=== PATIENT | female | born 1975 | race Caucasian/White ===

== ENCOUNTER 2025-02-11 06:11 | Day surgery (SDC) | payer OTHER, SELFPAY | END 2025-02-11 09:35 | disposition home or self-care (01) | LOC: GI 06:11 | PROVIDERS: ATTENDING PHYSICIAN Internal Medicine; FAMILY PHYSICIAN Physician Assistant Medical | DX: Z12.11 Encounter for screening for malignant neoplasm of colon (principal); K57.30 Diverticulosis of large intestine without perforation or abscess without bleeding; K63.5 Polyp of colon; K62.1 Rectal polyp; Z86.0100 Personal history of colon polyps, unspecified | CPT/HCPCS: 45385; 88305 ==